=== PATIENT | female | born 1985 | race Caucasian/White ===

== ENCOUNTER 2020-08-21 11:08 | Emergency (ER) | payer BC, SELFPAY ==
[2020-08-21 11:11] VITALS: BP 147/75; PULSE 90; RESP 18; TEMP 36.6; O2SAT 100
--- NOTE | 2020-08-21 12:13 | ED.NEUROSD ---
HPI - Neuro Symptoms/Deficit General Chief Complaint: Neuro Symptoms/Deficit Stated Complaint: seizures, neuro issues Time Seen by Provider: 08/21/20 11:49 History of Present Illness HPI Narrative: 34 yo female w/ h/o nonepileptic seizures presents to the ED for seizures. She was admitted here 2 years ago for seizures. She was ultimately transferred to [facility] and it was determined that they were nonepileptic. She had not had any issues for more than a year until the past few days. She has had multiple episodes over that time. These are also associated with tingling in her mouth and feet and twitching. Related Data Home Medications Medication Instructions Recorded Confirmed fluoxetine mg 08/21/20 Allergies Allergy/AdvReac Type Severity Reaction Status Date / Time ketorolac Allergy Severe Swelling Verified 08/21/20 12:28 in face Sulfa (Sulfonamide Allergy Unknown RASH Verified 08/21/20 12:28 Antibiotics) Review of Systems Review of Systems: All systems reviewed & are unremarkable except as noted in HPI and below Constitutional: Constitutional: Denies chills, Denies fever(s) and Denies weakness Eyes: Eyes: Reports no additional eye complaints ENT: Denies dizziness and Denies sore throat Cardiovascular: Cardiovascular: Denies chest pain Respiratory: Respiratory: Denies dyspnea Gastrointestinal: Gastrointestinal: Denies abdominal pain and Denies nausea Genitourinary: Genitourinary: Denies hematuria and Denies dysuria Musculoskeletal: Musculoskeletal: Denies back pain Neurologic: Denies dizziness, Denies headache(s), Reports numbness and Denies weakness Psychiatric: Psychiatric: Reports anxiety [facility] Past Medical History Medical History (Updated 08/21/20 @ 14:15 by Maury Yates MD) Anxiety Convulsion, non-epileptic Social History Social History Gender identity (if verbalized by the patient): Female Exam Const: General: healthy appearing, no acute distress and alert Orientation/consciousness: patient oriented x3 HENMT: Head: normal to inspection Neck: Neck: normal visual inspection and no lymphadenopathy Chest: Chest palpation & inspection: no tenderness Resp: Effort & Inspection: normal respiratory effort Auscultation: clear to auscultation bilaterally, no rales, no rhonchi and no wheezes Cardio: Jugular venous distension: no JVD Rate: regular rate Rhythm: regular rhythm Heart sounds: no murmurs GI: Inspection: non-distended GI Palp: Yes Soft to palpation and No Tenderness to palpation present (GI) Skin: General skin exam: normal color Neuro: General: patient oriented x3, moves all extremities, no focal motor deficits and CN's II-XI intact bilaterally Speech: normal speech Other: occasional facial tics. Extrem: General: no edema Psych: Appearance: grossly normal and well kempt Mental Status: mental status grossly normal Affect: Anxious affect present Course Vital Signs Vital signs: Vital Signs Temperature 36.6 C 08/21/20 11:11 Pulse Rate 90 08/21/20 11:11 Respiratory Rate 18 08/21/20 11:11 Blood Pressure 147/75 H 08/21/20 11:11 Pulse Oximetry 100 08/21/20 11:11 Temperature 36.6 C 08/21/20 14:04 Pulse Rate 57 L 08/21/20 14:04 Respiratory Rate 19 08/21/20 14:04 Blood Pressure 99/66 L 08/21/20 14:04 Pulse Oximetry 98 08/21/20 14:04 MDM - Neuro Symptoms/Deficit MDM Narrative Medical decision making narrative: She seems to be suffering from more nonepilaeptic seizures. These are most likely related to her anxiety. Feeling better after ativan. I will prescribe her a small amount. She would benefit from psy follow-up. Medical Records Attestation: I reviewed the patient's medical records. Lab Data Attestation: I reviewed the patient's lab results. Result diagrams: 08/21/20 12:16 08/21/20 12:16 Labs: Lab Results 08/21/20 08/21/20 08/21/20 Range/Units 12:16 12:16 12:24 WBC 6.1
[2020-08-21 12:21] LABS: Basophils Percent Auto 0.3 % (0.2-1.2); Eosinophils Absolute Auto 0.1 K/mm3 (0-0.3); Eosinophils Percent Auto 1.3 % (0-4.4); Hematocrit 41.1 % (37.0-47.0); Hemoglobin 13.5 g/dL (12.0-15.0); Immature Granulocyte Absolute 0.01 K/mm3 (0.00-0.031); Immature Granulocyte Percent A 0.2 % (0-0.5); Lymphocytes Absolute Auto 2.43 K/mm3 (0.9-3.2); Lymphocytes Percent Auto 39.7 % (18.3-44.2); Mean Corpuscular HGB Conc 32.8 g/dl (32-36); Mean Corpuscular Hemoglobin 30.8 pg (26-34); Mean Corpuscular Volume 93.8 fl (80-100); Mean Platelet Volume 9.2 fl (7.4-10.4); Monocytes Absolute Auto 0.4 K/mm3 (0.1-0.6); Neutrophils Absolute Auto 3.2 K/mm3 (1.3-6.7); Neutrophils Percent Auto 52.5 % (45.5-73.1); Platelet Count Result 369 k/mm3 (150-375); Red Blood Count 4.38 M/mm3 (4.2-5.4); Red Cell Distribution Width 12.5 % (11.5-14.5); White Blood Count 6.1 K/mm3 (4.5-10.0)
[2020-08-21 12:35] LABS: Add Urine Microscopic? NO; Appearance Urine Clear (Clear); Bilirubin Urine Negative (Negative); Blood Urine Negative (Negative); Color Urine Yellow (Yellow); Glucose Urine UA Negative (Negative); Ketones Urine Negative (Negative); Leukocyte Esterase Ur Negative LEU/UL (Negative); Nitrate Urine Negative (Negative); Protein Urine Negative (Negative); Specific Grav Ur 1.015 (1.001-1.035); Urobilinogen Urine Negative mg/dL (<2.0)
[2020-08-21 12:37] VITALS: BP 119/75; PULSE 65; RESP 18; TEMP 36.7; O2SAT 100
[2020-08-21 12:37] LABS: Anion Gap 5 mmol/L (8-16); Blood Urea Nitrogen 10 mg/dL (7-17); Calcium 8.7 mg/dL (8.4-10.2); Carbon Dioxide 28 mmol/L (22-30); Chloride 107 mmol/L (98-107); Estimated CRCL calculation 77 ml/min; Estimated Glomerular Filt Rate > 60; Glucose 89 mg/dL (65-105); Potassium 4.3 mmol/L (3.4-5.0); Sodium 140 mmol/L (137-145)
[2020-08-21] MEDS: SODIUM CHLORIDE 0.9% IV 1,000 ML 999 ML IV CONT (12:41)
[2020-08-21] MEDS: LORazepam INJ (*CRX) 2 MG/ML VIAL 0.5 MG IV PUSH (12:41)
[2020-08-21 14:04] VITALS: BP 99/66; PULSE 57; RESP 19; TEMP 36.6; O2SAT 98
--- NOTE | 2020-08-21 14:39 | PC.NURSE ---
Patient was reported to have had fecal emesis upon returning from CT. Patient was cleaned and provided with clean linen. EDP was notified.
== END 2020-08-21 14:55 | disposition home or self-care (01) ==
PROVIDERS: Emergency Provider Emergency Medicine
DX: G40.89 Other seizures (principal); F41.9 Anxiety disorder, unspecified
CPT/HCPCS: 36415; 80048; 81003; 85025; 96361; 96374; 99284; J2060; J7030

== ENCOUNTER 2020-10-08 13:37 | Outpatient (CLI) | payer BC, SELFPAY ==
--- NOTE | ~2020-10-08 | XR_ITS ---
XR cervical spine 4-5V 10/08/2020 13:54 Indication: Right arm paresthesias and tremors Procedure: 4 view cervical spine Comparison: No prior studies for comparison. Findings: Straightening of cervical lordosis. No fracture, subluxation or dislocation. No prevertebra l soft tissue abnormality. Odontoid process within normal limits. Lung apices are normal. Vertebral b odies and disc heights are preserved. Impression: 1: No significant abnormality of the cervical spine. Reviewed, dictated and finalized at location A. Impression: 1: No significant abnormality of the cervical spine.
== END 2020-10-08 13:38 | disposition home or self-care (01) ==
LOC: ANHIMG 13:46
PROVIDERS: PCP Emergency Medicine; Visit Provider Emergency Medicine
DX: R20.2 Paresthesia of skin (principal); R25.1 Tremor, unspecified
CPT/HCPCS: 72050

== ENCOUNTER 2020-10-14 10:13 | Emergency (ER) | payer BC, SELFPAY ==
[2020-10-14 10:20] VITALS: BP 113/85; PULSE 87; RESP 20; TEMP 36.4; O2SAT 100
--- NOTE | 2020-10-14 11:12 | ED.BACK ---
HPI - Back Pain/Injury General Chief Complaint: Back Pain/Injury Stated Complaint: back injury Time Seen by Provider: 10/14/20 11:12 History of Present Illness HPI Narrative: 35 yo female presents to the ED for back pain. She was weeding in the garden yesterday and when she stood up at the end of the day her back was very stiff. When she awoke this morning she could barely stand or walk due to the pain. No weakness, numbness, urinary or GI symptoms. She tried Tylenol and ibuprofen without relief. She does have chronic low back pain, but she says this is a different pain. Related Data Home Medications Medication Instructions Recorded Confirmed fluoxetine mg 10/14/20 Allergies Allergy/AdvReac Type Severity Reaction Status Date / Time ketorolac [From Toradol] Allergy Swelling Verified 10/14/20 11:12 of Lip/Tongue/Throat Sulfa (Sulfonamide AdvReac Rash Verified 10/14/20 11:12 Antibiotics) Review of Systems Review of Systems: All systems reviewed & are unremarkable except as noted in HPI and below Constitutional: Constitutional: Denies chills, Denies fever(s) and Denies weakness Cardiovascular: Cardiovascular: Denies chest pain Respiratory: Respiratory: Denies dyspnea Gastrointestinal: Gastrointestinal: Denies abdominal pain and Denies nausea Genitourinary: Genitourinary: Denies hematuria, Denies nocturia and Denies dysuria Musculoskeletal: Musculoskeletal: Reports back pain Neurologic: Denies confusion, Denies dizziness, Denies numbness and Denies weakness PMFSH Past Medical History Medical History (Updated 10/17/20 @ 12:18 by Maury Yates MD) Depression Social History Social History (Updated 10/17/20 @ 12:19 by Maury Yates MD) Living arrangements: with family Gender identity (if verbalized by the patient): Female Exam Const: General: healthy appearing, no acute distress and alert Orientation/consciousness: patient oriented x3 HENMT: Head: normal to inspection Neck: Neck: normal visual inspection Resp: Effort & Inspection: normal respiratory effort Auscultation: clear to auscultation bilaterally, no rales, no rhonchi and no wheezes Cardio: Jugular venous distension: no JVD Rate: regular rate Rhythm: regular rhythm Heart sounds: no murmurs : General: Yes no CVA tenderness Back/Spine/Pelvis: Other: tenderness over llower lumbar and SI region Skin: General skin exam: normal color Neuro: General: patient oriented x3 and moves all extremities Speech: normal speech Gait exam (Neuro): Normal gait present Extrem: General: no edema Psych: Appearance: well kempt Affect: normal affect Course Vital Signs Vital signs: Vital Signs Temperature 36.4 C 10/14/20 10:20 Pulse Rate 87 10/14/20 10:20 Respiratory Rate 20 10/14/20 10:20 Blood Pressure 113/85 10/14/20 10:20 Pulse Oximetry 100 10/14/20 10:20 Temperature 36.4 C 10/14/20 10:20 Pulse Rate 87 10/14/20 10:20 Respiratory Rate 20 10/14/20 10:20 Blood Pressure 113/85 10/14/20 10:20 Pulse Oximetry 100 10/14/20 10:20 MDM - Back Pain/Injury MDM Narrative Medical decision making narrative: No indication for emergent imaging Differential Diagnosis Differential diagnosis: Likely lumbar radiculopathy, sciatica and strain of lumbar region Medical Records Attestation: I reviewed the patient's medical records. Discharge Plan Discharge Clinical Impression: Strain of lumbar region Patient Disposition: Home, Self-Care Condition: Stable Instructions: Acute Low Back Pain (ED), Lower Back Exercises (ED) Prescriptions: New hydrocodone-acetaminophen 5-325 mg tablet 1 tablet PO Q6H PRN (Reason: pain) Qty: 5 RF: 0 cyclobenzaprine 10 mg tablet 10 mg PO TID PRN (Reason: muscle spasm) Qty: 20 RF: 0 No Action fluoxetine 40 mg capsule RF: 0 Follow-up/Referrals: Ivan Contreras MD [Primary Care Provider] -
[2020-10-14] MEDS: diazePAM INJ (*CRX) 10 MG/2 ML SYRINGE 5 MG IM (11:55)
[2020-10-14] MEDS: HYDROcodone/acetaminophen (*CRX) 5-325 MG TABLET 1 TAB PO (11:55)
== END 2020-10-14 12:29 | disposition home or self-care (01) ==
PROVIDERS: Emergency Provider Emergency Medicine; PCP Emergency Medicine
DX: S39.012A Strain of muscle, fascia and tendon of lower back, initial encounter (principal); F32.9 Major depressive disorder, single episode, unspecified; X50.9XXA Other and unspecified overexertion or strenuous movements or postures, initial encounter; Y93.H2 Activity, gardening and landscaping
CPT/HCPCS: 96372; 99283; A9270; J3360

== ENCOUNTER 2020-10-18 16:46 | Outpatient (CLI) | payer BC, SELFPAY ==
--- NOTE | ~2020-10-18 | XR_ITS ---
EXAMINATION: XR lumbar spine 2-3V DATE: 10/18/2020 17:03 INDICATION: Midline low back pain radiating into the right leg TECHNIQUE: Anteroposterior and lateral views of the lumbar spine, and cone-down lateral view of the l umbosacral junction were obtained. COMPARISON: None. FINDINGS: 6 degrees levocurvature between L3 and L5. Sagittal alignment is normal. Vertebral body heights are n ormal. Mild right-sided disc height loss at L4-L5. Sacrum and bilateral sacroiliac joints are normal. IMPRESSION: 1. Mild lower lumbar levocurvature with mild right-sided disc height loss at L4-L5. Reviewed, dictated and finalized at location A. IMPRESSION: 1. Mild lower lumbar levocurvature with mild right-sided disc height loss at L4 -L5.
== END 2020-10-18 16:47 | disposition home or self-care (01) ==
LOC: ANHIMG 16:47
PROVIDERS: PCP Emergency Medicine; Visit Provider Emergency Medicine
DX: M54.5 Low back pain (principal)
CPT/HCPCS: 72100

== ENCOUNTER 2021-11-12 20:21 | Emergency (ER) | payer OTHER, SELFPAY ==
--- NOTE | ~2021-11-12 | XR_ITS ---
EXAM: XR finger 4th RT min 2V DATE: 11/12/2021 20:53 HISTORY: crush injury rt ring finger ON TUFT . COMPARISON: None available. FINDINGS: Normal mineralization. Comminuted fracture of the fourth distal tuft. No other fracture. N o dislocation. No lytic or blastic lesion. Joint spaces are maintained. No erosion or periosteal watt ge. Soft tissues within normal limits. IMPRESSION: Comminuted right fourth distal tuft fracture. Reviewed, dictated and finalized at location K.
[2021-11-12 20:34] VITALS: BP 150/76; PULSE 79; RESP 18; TEMP 36.2; O2SAT 99
--- NOTE | 2021-11-12 22:14 | PC.NURSE ---
2x2 over wound, finger splint placed on right fourth digit and secure with coban
[2021-11-12] MEDS: HYDROcodone/acetaminophen (*CRX) 7.5-325 MG TABLET 1 TAB PO (22:16)
--- NOTE | 2021-11-12 22:19 | ED.UPPEXIN ---
HPI - Extremity Injury (Upper) General Chief Complaint: Extremity Injury, Upper Stated Complaint: Hand injury Time Seen by Provider: 11/12/21 21:50 History of Present Illness HPI narrative: Patient is a 36-year-old female complaining of crushed my finger , right ring finger, on the trash can prior to arrival. Patient states her pain is a 9 out of 10, aching, worse with palpation and movement. Patient denies any other injuries. Patient tetanus shot is up-to-date. Related Data Home Medications Medication Instructions Recorded Confirmed fluoxetine 20 mg capsule mg 08/21/20 fluoxetine 40 mg capsule mg 10/14/20 Allergies Allergy/AdvReac Type Severity Reaction Status Date / Time ketorolac [From Toradol] Allergy Swelling Verified 11/12/21 21:36 of Lip/Tongue/Throat Sulfa (Sulfonamide AdvReac Rash Verified 11/12/21 21:36 Antibiotics) Review of Systems Review of Systems: Per HPI All systems reviewed & are unremarkable except as noted in HPI and below PMFSH Past Medical History Medical History Anxiety Convulsion, non-epileptic Depression Social History Social History Gender identity (if verbalized by the patient): Female Exam Extrem: Other: Contusion, ecchymosis, decreased range of motion due to pain, pain on palpation distal tip of fourth digit right hand. Neurovascular is back.. Course Vital Signs Vital signs: Vital Signs Temperature 36.2 C L 11/12/21 20:34 Pulse Rate 79 11/12/21 20:34 Respiratory Rate 18 11/12/21 20:34 Blood Pressure 150/76 H 11/12/21 20:34 Pulse Oximetry 99 11/12/21 20:34 Oxygen Delivery Room Air 11/12/21 20:34 Temperature 36.2 C L 11/12/21 20:34 Pulse Rate 79 11/12/21 20:34 Respiratory Rate 18 11/12/21 20:34 Blood Pressure 150/76 H 11/12/21 20:34 Pulse Oximetry 99 11/12/21 20:34 Oxygen Delivery Room Air 11/12/21 20:34 Procedures Orthopedic Splinting/Casting Injury #1: Splinting/Casting Date: 11/12/21 Splinting/Casting Time: 22:24 Side: right Upper Extremity Injury Location: hand and finger Pre-Formed: metal foam finger splint Pre-Procedure Neuro Vascular Exam: normal Post-Procedure Neuro Vascular Exam: normal Discharge Plan Discharge Clinical Impression: Closed fracture of tuft of distal phalanx of finger Patient Disposition: Home, Self-Care Condition: Improved Prescriptions: New cephalexin 500 mg capsule 500 mg PO Q12H 37 Days Qty: 74 0RF hydrocodone-acetaminophen 5-325 mg tablet 1 tablet PO Q6H PRN (Reason: pain) Qty: 10 0RF No Action fluoxetine 20 mg capsule lorazepam [Ativan] 0.5 mg tablet 0.5 mg PO TID PRN (Reason: anxiety) Qty: 10 0RF fluoxetine 40 mg capsule hydrocodone-acetaminophen 5-325 mg tablet 1 tablet PO Q6H PRN (Reason: pain) Qty: 5 0RF cyclobenzaprine 10 mg tablet 10 mg PO TID PRN (Reason: muscle spasm) Qty: 20 0RF Follow-up/Referrals: Aleksandr Chua MD [Physician] - 11/13/21 (Call tomorrow for an appointment) Ivan Contreras MD [Primary Care Provider] - Time of Disposition: :
== END 2021-11-12 22:35 | disposition home or self-care (01) ==
PROVIDERS: Emergency Provider Emergency Medicine; PCP Emergency Medicine
DX: S62.639A Displaced fracture of distal phalanx of unspecified finger, initial encounter for closed fracture (principal); W23.0XXA Caught, crushed, jammed, or pinched between moving objects, initial encounter
CPT/HCPCS: 29130; 73140; 99284; A9270

== ENCOUNTER 2022-06-22 15:46 | Emergency (ER) | payer OTHER, SELFPAY ==
--- NOTE | ~2022-06-22 | CT_ITS ---
EXAMINATION: CT brain wo con DATE: 06/22/2022 21:25 INDICATION: migraine X 10d, Hx pineal cyst? . TECHNIQUE: Computed tomography (CT) of the head was performed without intravenous contrast. The mA wa s adjusted according to patient size. Iterative reconstruction technique was employed. The dose-lengt h product was 605.33 mGy-cm. COMPARISON: None. FINDINGS: No acute intracranial hemorrhage or extra-axial fluid collection. No hydrocephalus, concerning mass, or herniation. Possible small pineal cyst. No acute ischemic infarct. Unremarkable dural venous sinus attenuation. No acute osseous abnormality. The aerated spaces are clear. IMPRESSION: No acute intracranial process. Reviewed, dictated and finalized at location K. L MOLD BONDER
[2022-06-22 16:06] VITALS: BP 136/95; PULSE 96; RESP 16; O2SAT 100
[2022-06-22 20:14] VITALS: BP 141/103; PULSE 66; RESP 18; O2SAT 100
[2022-06-22] MEDS: SODIUM CHLORIDE 0.9% IV 1,000 ML 999 ML IV CONT (21:35)
[2022-06-22] MEDS: METOCLOPRAMIDE HCL INJ 10 MG/2 ML VIAL IV PUSH (21:37)
--- NOTE | 2022-06-22 21:45 | ED.HA ---
HPI - Headache General Chief Complaint: Headache Stated Complaint: Migraine x 2 weeks. PCP told to come to ED Time Seen by Provider: 06/22/22 20:14 Source: patient Mode of arrival: ambulatory Limitations: no limitations History of Present Illness HPI Narrative: Patient is a 36-year-old female, with past medical history of migraines, South-Danlos syndrome, nonepileptic seizures, neuropathy, who presents to the ED with report of a migraine. Patient reports having a persistent headache for the last 10 days. Pain is located in frontal region, described as pressure. It does feel consistent with her previous migraines. She has been taking Tylenol, ibuprofen, Aleve at home with minimal relief. She was referred to the ED by her primary care doctor today. 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 She has not followed up further with this. She does report she has 6 neurologists at [facility]. Patient also reports having nausea, vomiting, photophobia, phonophobia, mild dizziness. Denies blurry or double vision, abdominal pain, fever, neck pain, cough or cold symptoms. Related Data Home Medications Medication Instructions Recorded Confirmed fluoxetine 20 mg capsule mg 08/21/20 fluoxetine 40 mg capsule mg 10/14/20 Allergies Allergy/AdvReac Type Severity Reaction Status Date / Time ketorolac [From Toradol] Allergy Swelling Verified 06/22/22 20:11 of Lip/Tongue/Throat diphenhydramine AdvReac Unconscious Verified 06/22/22 20:11 [From Benadryl] Sulfa (Sulfonamide AdvReac Rash Verified 06/22/22 20:11 Antibiotics) Review of Systems Review of Systems: CONSTITUTIONAL: Denies fever, chills, or sweats. EYES: Reports photophobia. ENT: Reports photophobia. See HPI. CARDIOVASCULAR: Denies chest pain. RESPIRATORY: Denies dyspnea. GASTROINTESTINAL: See HPI. MUSCULOSKELETAL: Denies neck pain. NEUROLOGIC: See HPI. All systems reviewed & are unremarkable except as noted in HPI and below PMFSH Past Medical History Medical History Anxiety Convulsion, non-epileptic Depression South-Danlos syndrome Migraine Neuropathy Surgical History Surgical History No pertinent past surgical history Social History Social History Gender identity (if verbalized by the patient): Female Exam Narrative: GENERAL: Well appearing, well-nourished, non-toxic, in no acute distress. HEAD: Normocephalic, atraumatic. EYES: PERRL/EOMI, conjunctivae clear bilaterally. No nystagmus. NECK: Supple. No adenopathy, no masses. Full nonpainful range of motion. No meningeal signs. RESPIRATORY: Airway patent, respirations nonlabored. Clear to auscultation bilaterally, no rales, rhonchi, wheezing. CARDIOVASCULAR: Regular rate and rhythm without murmurs, rubs, or gallops. Peripheral pulses 2+ and equal bilaterally. ABDOMINAL: Soft, nontender, nondistended, no hepatosplenomegaly. Normoactive BS. MUSCULOSKELETAL: Moves all extremities. Strength/ROM intact without gross deformities. SKIN: Warm, dry, normal color. No rashes. NEURO: A&O X3. Speech clear. Follows commands. CN II-XII grossly intact. Sensation grossly intact. Steady gait. No ataxic movements. No focal deficits. PSYCHIATRIC: Appropriate mood and affect. Normal interaction. Course Vital Signs Vital signs: Vital Signs Pulse Rate 96 06/22/22 16:06 Respiratory Rate 16 06/22/22 16:06 Blood Pressure 136/95 H 06/22/22 16:06 Pulse Oximetry 100 06/22/22 16:06 Oxygen Delivery Room Air 06/22/22 16:06 Pulse Rate 92 06/22/22 22:11 Respiratory Rate 14 06/22/22 22:11 Blood Pressure 141/76 H 06/22/22 22:11 Pulse Oximetry 97 06/22/22 22:11 Oxygen Delivery Room Air 06/22/22 16
[2022-06-22] MEDS: NAPROXEN 500 MG TABLET PO (21:55)
[2022-06-22 22:11] VITALS: BP 141/76; PULSE 92; RESP 14; O2SAT 97
[2022-06-22 23:30] VITALS: BP 123/74; PULSE 88; RESP 19; O2SAT 97
== END 2022-06-22 23:30 | disposition home or self-care (01) ==
PROVIDERS: Emergency Provider Physician Assistant; PCP Emergency Medicine
DX: G43.909 Migraine, unspecified, not intractable, without status migrainosus (principal); Q79.60 Ehlers-Danlos syndrome, unspecified; R56.9 Unspecified convulsions; G62.9 Polyneuropathy, unspecified; F41.9 Anxiety disorder, unspecified; F32.A Depression, unspecified
CPT/HCPCS: 70450; 96361; 96374; 96375; 99284; A9270; J0131; J1100; J2765; J7030